=== PATIENT | female | born 1985 | race Caucasian/White ===

== ENCOUNTER 2017-02-10 11:59 | Emergency (ER) | payer OTHER ==
[~2017-02-10] VITALS: Ht 162.6 cm; Wt 85.7 kg
[2017-02-10 11:59] VITALS: BP 125/72
--- NOTE | 2017-02-10 16:01 | REP ---
Pelvis right hip: Three views. History: Right hip pain. Findings: AP view of the pelvis shows an intact bony pelvic ring. No pelvic or sacral fracture is seen. No hip fracture is noted. AP and frog-leg views of the right hip show smooth rounded femoral head and intact hip joint space. Periarticular soft tissues are unremarkable. Impression: Negative views of the pelvis and right hip. Signed by Ruddy Rueda MD 02/10/2017 06:38 P
[2017-02-10] MEDS ORDERED: PRED20TA PO (16:10)
[2017-02-10] MEDS ORDERED: predniSONE 20 MG TAB PO ONE (16:15)
[2017-04-26] MEDS ORDERED: NAPR250T45 PO (10:56)
[2017-04-26] MEDS ORDERED: PERCOCET PO (10:56)
== END 2017-02-10 16:23 | disposition home or self-care (01) ==
LOC: M ED 11:59
DX: S76.011A Strain of muscle, fascia and tendon of right hip, initial encounter (principal); X58.XXXA Exposure to other specified factors, initial encounter; Y92.89 Other specified places as the place of occurrence of the external cause; Y93.89 Activity, other specified; Y99.1 Military activity; F17.210 Nicotine dependence, cigarettes, uncomplicated; Z88.0 Allergy status to penicillin

== ENCOUNTER → 2017-04-26 | Day surgery (SDC) | payer OTHER ==
[~2017-04-26] VITALS: Ht 162.6 cm; Wt 84.1 kg
[~2017-04-26] MED LIST: BUPIVACAINE HCL 0.5% 10 ML VIAL As Ordered ONE; BUPIVACAINE HCL 0.5% 30 ML VIAL SC ONE; CLINDAMYCIN INJ 900MG/6ML VIAL As Ordered ONE; LIDOCAINE 1% MDV 20ML VIAL SC ONE; LIDOCAINE 2% INJ 100 MG/5 ML SDV (FOR ANES.) As Ordered ONE; LIDOCAINE 2% MDV 20 ML VIAL As Ordered ONE; LR 1,000 ML IV SCH; MIDAZOLAM INJ 2 MG/2 ML VIAL (J2250) As Ordered ONE; NAPR250T45 PO; NAPROXEN 250 MG TAB PO SCH; ONDANSETRON 4MG/2ML VIAL (J2405) As Ordered ONE; ONDANSETRON 4MG/2ML VIAL (J2405) IV PRN; PERCOCET 5MG/325MG TAB PO PRN; PERCOCET PO; PRED20TA PO; PROPOFOL 200 MG/20 ML VIAL As Ordered ONE; PROPOFOL 200 MG/20 ML VIAL IV ONE; fentaNYL 100 MCG/2 ML INJECTION (J3010) As Ordered ONE; fentaNYL 100 MCG/2 ML INJECTION (J3010) IV PRN
[2017-04-26 03:08] VITALS: O2SAT 99
--- NOTE | 2017-04-26 07:39 | REP ---
Left hand four views: There is lateral dislocation of the proximal thumb phalange in relation to the thumb metacarpal. I suspect there is dislocation at the thumb IP articulation. No fractures are identified. Mineralization joint spaces otherwise are unremarkable. Signed by Aditya Spencer MD 04/26/2017 07:31 A
--- NOTE | 2017-04-26 10:46 | REP ---
LEFT HAND, FOUR VIEWS: HISTORY: Dislocation. COMPARISON: 1:58 a.m. 04/26/2017. Four radiographs were obtained with a C-arm. The patient is status post reduction of dislocation of the proximal phalange of the 1st digit. There is no definite fracture. There is anatomic alignment. Fluoro time 9.2 seconds. IMPRESSION: The patient is status post reduction of dislocation of the proximal phalange of the first digit. There is anatomic alignment. Signed by Delbert Huggins MD 04/26/2017 10:50 A
[2017-04-26] MEDS: HYDROmorphone HCL 1 MG/ML SYRINGE (J1170) IV PRN ×5 (10:54→11:37)
[2017-04-26] MEDS: PERCOCET 5MG/325MG TAB PO PRN ×2 (10:54→11:25)
--- NOTE | 2017-04-26 11:50 | REP ---
LEFT HAND FOUR VIEWS: HISTORY: Post reduction. COMPARISON: 1:58 a.m. 04/26/2017. A plaster cast is present obscuring detail. The patient is status post reduction of dislocation of the proximal phalange of the 1st digit. There is no definite fracture. There is anatomic alignment. IMPRESSION: The patient is status post reduction of dislocation of the proximal phalange of the 1st digit. There is anatomic alignment. Signed by Delbert Huggins MD 04/26/2017 11:51 A
[2017-04-26 12:41] VITALS: BP 124/81
--- NOTE | 2017-04-26 21:48 | CR ---
DATE OF CONSULTATION: 04/26/2017 REASON FOR CONSULTATION: Left thumb metacarpophalangeal joint dislocation. CONSULTING PHYSICIAN: Dr. Etienne. CHIEF COMPLAINT: Left thumb dislocation. 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 The patient underwent two attempted closed reductions in the emergency department and they were unsuccessful, and I was consulted for further management of this injury. The patient stated she did not exactly remember the nature of her fall, but states that she fell down directly onto her left thumb. She denies any other pain. She denies any associated tingling or burning sensation distally about her left upper extremity. The patient did have a previous digital block done by the emergency department, and states that she does have some finger numbness. No other complaints. PAST MEDICAL HISTORY: None. ALLERGIES: PENICILLIN. PAST SURGICAL HISTORY: None. MEDICATIONS: None. FAMILY HISTORY: Noncontributory. 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 She is an occasional smoker and also uses E-cigarettes. She does not use illicit drugs, and she does drink alcohol. REVIEW OF SYSTEMS: A 14-point review of systems was reviewed and was unremarkable. PHYSICAL EXAMINATION: VITAL SIGNS: Temperature is 96.5, heart rate 90, blood pressure 139/77, respiratory rate 20, oxygen saturation 100% on room air. GENERAL: This is a well-nourished female who appears her stated age, in no acute distress. NEUROLOGIC: She is awake, alert, and oriented to person, place and time. She has some diminished sensation distally about the left thumb secondary to prior digital nerve block. She is otherwise sensate of the left upper extremity. CARDIOVASCULAR: She has 2+ radial pulses and brisk capillary refill distally about the left thumb. MUSCULOSKELETAL: Full physical exam of the left lower extremity demonstrates obvious deformity of the left thumb with the thumb held in extended position. There is a small superficial abrasion on the volar aspect of the thumb at the thenar eminence just proximal to the MCP joint flexion crease. The patient has minimal volitional flexion at the left thumb MCP and interphalangeal (IP) joint. She is able to actively extend the left thumb at the IP joint. DATA: Plain radiographs of the left thumb demonstrate a dorsal metacarpophalangeal joint dislocation with no associated fracture. ASSESSMENT: This is a 31-year-old female with a left thumb, metacarpophalangeal dislocation. PLAN: I discussed with the patient the treatment options. We discussed an additional attempt at closed reduction and if this is not successful, then we would have to go to the operating room for an open reduction. The patient expressed understanding and provided verbal consent for the repeat left thumb metacarpophalangeal joint closed reduction. Using 6 mL of 2% lidocaine without epinephrine, I performed a digital nerve block in addition to placing some into the MCP joint directly. I performed closed reduction attempt and was unable to obtain a reduction by closed means. Therefore, open reduction was required. I discussed with the patient the risks, benefits, indications and alternatives of open reduction of the thumb to include infection, nerve/blood vessel damage, and stiffness. The patient expressed understanding and provided informed consent for left thumb metacarpophalangeal joint open reduction, given the difficulty with closed reduction. It is likely that she has interposed sesamoids blocking reduction. We will proceed to the operating room when available. The patient expressed understanding and agreed with the plan. All of her questions were answered. DOUGLAS
--- NOTE | 2017-04-28 07:48 | RO ---
DATE OF PROCEDURE: 04/26/2017 PREOPERATIVE DIAGNOSIS: Left thumb metacarpal phalangeal joint complex dislocation. POSTOPERATIVE DIAGNOSIS: Left thumb metacarpal phalangeal joint complex dislocation. PROCEDURE PERFORMED: Left thumb open reduction metacarpal phalangeal joint. SURGEON: Dr. Hossein Velez MANAGER SITE: none ANESTHESIA: LMA anesthesia. ANTIBIOTICS: 900 mg IV clindamycin given within one our of incision. TOTAL TOURNIQUET TIME: 20 minutes at 250 mmHg left forearm. COMPLICATIONS: None. MATERIALS SENT TO LAB: none ANESTHESIA PROVIDER: Dr. Guillory. 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 The patient presented to the emergency room and underwent two attempts at closed reduction in the emergency room followed by an additional attempt at closed reduction by me. The patient's plain radiographs demonstrated a dorsal metacarpophalangeal (MCP) joint dislocation. Given the inability to reduce by closed means, it is likely that she had interposed sesamoids blocking reduction, therefore, she was indicated for a left thumb open reduction and splinting and I counseled the patient on the risks, benefits, indications and alternatives to operative versus continued closed management. She elected to proceed and provided informed consent for a left thumb open reduction. Informed consent was obtained. INTRAOPERATIVE FINDINGS: There were interposed sesamoids in the metacarpal phalangeal joint that were blocking reduction. The thumb was stable through range of motion after open reduction. DESCRIPTION OF OPERATION: The patient was positively identified in the preoperative holding area where the surgical site was marked. She was then brought to the operating room where she was placed under LMA anesthesia. She was then prepped and draped in the usual sterile fashion. She was positioned supine on the regular table. All bony prominences appropriately padded. Sequential compression devices (SCDs) were placed on the lower extremities for deep vein thrombosis (DVT) prophylaxis. After she was prepped and draped in the usual sterile fashion, a final time out was performed. I made a 2 cm incision over the dorsal radial aspect of the left thumb centered over the MCP joint. I dissected through skin and subcutaneous tissue. I identified the MCP joint capsule and incised it sharply. I identified the metacarpophalangeal joint with the interposed sesamoids. I used a [place] elevator to push the sesamoids volarly which cleared soft tissue and allowed for open reduction. After open reduction, I visualized under C-arm fluoroscopy confirming that the thumb was stable through a range of motion and concentrically reduced at the metacarpal phalangeal joint. At this point, the wound was irrigated with normal saline and closed with interrupted #2-0 Vicryl for the joint capsule layer and interrupted #3-0 nylon in horizontal mattress fashion for the skin incision. Sterile dressings were applied. This ended the procedure. I was present and scrubbed in for all portions of the case. POSTOPERATIVE PLAN: The patient will be in a splint. She will likely require 4-6 weeks of mobilization followed by occupational therapy. She will be discharged home today and will followup in 10-14 days for wound check and suture removal. DOUGLAS
== END | disposition home or self-care (01) ==
LOC: M ED 01:01 → M SDC 08:13
PROVIDERS: ATTEND Orthopaedic Surgery
DX: S63.115A Dislocation of metacarpophalangeal joint of left thumb, initial encounter (principal); W01.198A Fall on same level from slipping, tripping and stumbling with subsequent striking against other object, initial encounter; Y92.89 Other specified places as the place of occurrence of the external cause; Y93.89 Activity, other specified; Y99.8 Other external cause status; Z72.0 Tobacco use; Z88.0 Allergy status to penicillin
CPT/HCPCS: 26715; 73130; 99285; J1170; J2250; J2405; J3010

== ENCOUNTER → 2019-10-19 | Outpatient (CLI) | payer OTHER ==
[~2019-10-19] MED LIST changes: -BUPIVACAINE HCL 0.5% 10 ML VIAL As Ordered ONE; -BUPIVACAINE HCL 0.5% 30 ML VIAL SC ONE; -CLINDAMYCIN INJ 900MG/6ML VIAL As Ordered ONE; -LIDOCAINE 1% MDV 20ML VIAL SC ONE; -LIDOCAINE 2% INJ 100 MG/5 ML SDV (FOR ANES.) As Ordered ONE; -LIDOCAINE 2% MDV 20 ML VIAL As Ordered ONE; -LR 1,000 ML IV SCH; +METHACHOLINE KIT (J7674) INH ONE; -MIDAZOLAM INJ 2 MG/2 ML VIAL (J2250) As Ordered ONE; -NAPR250T45 PO; +NAPR250T82 PO; -NAPROXEN 250 MG TAB PO SCH; -ONDANSETRON 4MG/2ML VIAL (J2405) As Ordered ONE; -ONDANSETRON 4MG/2ML VIAL (J2405) IV PRN; -PERCOCET 5MG/325MG TAB PO PRN; -PROPOFOL 200 MG/20 ML VIAL As Ordered ONE; -PROPOFOL 200 MG/20 ML VIAL IV ONE; -fentaNYL 100 MCG/2 ML INJECTION (J3010) As Ordered ONE; -fentaNYL 100 MCG/2 ML INJECTION (J3010) IV PRN
--- NOTE | 2019-10-19 11:26 | PFTRPT ---
Height: 65.00 Inches Weight: 222.00 Lbs BSA: 2.07 Diagnosis: R06.00 DATE OF PROCEDURE: 10/19/2019 ORDERED BY: Rose Velásquez INTERPRETATION: Study of excellent technical quality. Under protocol, methacholine was administered. Some difficulty with the maneuver is noted. At a dose of 10 mg or 63.875 CDUs, a 28% decline in the FEV1 was noted. PC of 3.57 is significant. Flow rates did return to near baseline post bronchodilator administration. IMPRESSION: Positive methacholine challenge study. MTDD
== END ==
LOC: M CARPUL 10:14
PROVIDERS: ATTEND Nurse Practitioner Family
DX: R06.00 Dyspnea, unspecified (principal)
CPT/HCPCS: 94070; J7674

== ENCOUNTER → 2020-08-10 | Outpatient (CLI) | payer OTHER ==
[~2020-08-10] MED LIST changes: -METHACHOLINE KIT (J7674) INH ONE
--- NOTE | 2020-08-11 11:57 | ECHO ---
DATE OF PROCEDURE: 08/10/2020 Age: 34 Gender: Female Height: 163 cm Weight: 108 kg REFERRING PHYSICIAN: Herb London M.D. INDICATION: Heart murmur. MEASUREMENTS: IVS 0.9 cm LV 4.7 cm LVPW 0.9 cm LA 3.3 cm Aorta 2.2 cm RV 2.9 cm IVC 1.8 cm DOPPLER MEASUREMENT Mitral E wave velocity 83 Mitral A 52 E prime septal 9.0 E prime lateral 8.1 FINDINGS: This study is of difficult technical quality corresponding to patients body habitus. Underlying sinus rhythm. Normal LV size with normal LV systolic function, estimated EF around 65% to 70%. I do not appreciate any segmental wall motion abnormalities. Right ventricle is also normal size and systolic function. Both atria appear normal. Aortic, mitral, and tricuspid valves appear normal based on limited views. Pulmonic valve was not seen. No pericardial effusion is noted. Aortic root is normal. Aortic arch and abdominal aorta also appear normal. Doppler interrogation reveals competent aortic, mitral, and tricuspid valves without significant stenosis or insufficiency of either one. Mitral inflow pattern and tissue Doppler imaging of the mitral annulus revealed normal diastolic function. CONCLUSIONS: 1. Study is of limited technical quality corresponding to patients body habitus. Underlying sinus rhythm. 2. Normal LV size with preserved LV systolic and diastolic function. 3. No significant valvular disease. 4. Normal central venous pressure. 5. Unable to estimate pulmonary artery pressure. MTDD
== END ==
LOC: M CARPUL 10:10
PROVIDERS: ATTEND Internal Medicine
DX: R01.1 Cardiac murmur, unspecified (principal)

== ENCOUNTER → 2021-08-28 | Outpatient (CLI) | payer OTHER | LOC: M PLAIMG 13:20 | PROVIDERS: ATTEND Orthopaedic Surgery Sports Medicine | DX: M65.261 Calcific tendinitis, right lower leg (principal) ==